=== PATIENT | female | born 1985 | race Caucasian/White ===

== ENCOUNTER 2016-12-20 17:00 | Inpatient (IN) | payer OTHER ==
[~2016-12-20] VITALS: Ht 180.3 cm; Wt 46.3 kg
--- NOTE | ~2016-12-20 | PN ---
Unit #: [id number] #: [id number] Patient: ALEXY MALDONADO [id number] [facility] [address] [place] [address] [id number] I MR#: [id number] NAME: ALEXY MALDONADO ROOM: P210 Age: 31 Sex: F Admission Date: 12/20/2016 : 1985 Attending Physician: Dexter Van M.D. Admitting Physician: Dexter Van M.D. Primary Care Physician: Generic Doctor Not In System [facility] PROGRESS NOTES DATE 12/23/2016 DISCUSSION The patient continues to express hope that she will be accepted at the [facility] Works off a program. I have told her to expect a.m. discharge. Dictated by... Dexter Van M.D. CB/bzg TD: 12/23/2016 14:12 JOB #: [id number] [facility] PROGRESS NOTES Page 1 of 1 X Dexter Van MD X PROGRESS NOTE
--- NOTE | ~2016-12-20 | PN ---
Unit #: [id number] #: [id number] Patient: ALEXY MALDONADO [id number] [facility] [address] [place] [address] [id number] I MR#: [id number] NAME: ALEXY MALDONADO ROOM: P210 Age: 31 Sex: F Admission Date: 12/20/2016 : 1985 Attending Physician: Dexter Van M.D. Admitting Physician: Dexter Van M.D. Primary Care Physician: Generic Doctor Not In System [facility] PROGRESS NOTES DATE 12/22/2016 DISCUSSION The patient is in brighter spirits today and exhibits little in the way of signs of symptoms of withdrawal. She reports that she is [facility] her discharge from the hospital and has been working towards this with the help of a friend. Dictated by... Dexter Van M.D. CB/magali TD: 12/23/2016 05:10 JOB #: [id number] [facility] PROGRESS NOTES Page 1 of 1 X Dexter Van MD PROGRESS NOTE
--- NOTE | ~2016-12-20 | HP ---
Unit #: [id number] #: [id number] Patient: DAVINA MALDONADO [id number] [place] [address] [id number] I MR#: [id number] NAME: DAVINA MALDONADO ROOM: P210 Age: 31 Sex: F Admission Date: 12/20/2016 : 1985 Attending Physician: Dexter Van M.D. Admitting Physician: Dexter Van M.D. Primary Care Physician: Generic Doctor Not In System HISTORY AND PHYSICAL HISTORY OF PRESENT ILLNESS Davina is a 31-year-old female admitted on 12/20/[address] [place] [address] for detox from Suboxone and recent methamphetamine use. PAST MEDICAL HISTORY None. PAST SURGICAL HISTORY None. SOCIAL HISTORY Smokes one pack of cigarettes daily. No alcohol use. Does report use of Suboxone and methamphetamine amphetamine. She is currently single, living with her boyfriend and his mother and grandmother. FAMILY HISTORY Noncontributory. REVIEW OF SYSTEMS CONSTITUTIONAL: No fever or chills. HEENT: Denies any sore throat, ear pain or runny nose. CARDIOVASCULAR: Denies chest pain, irregular heart rhythm or palpitations. CHEST: Denies shortness of breath or cough. No hemoptysis. GASTROINTESTINAL: Denies nausea, vomiting, diarrhea or chronic constipation. ENDOCRINE: Denies history of increased thirst or urination. No recent significant weight loss or gain. GENITOURINARY: Denies dysuria, frequency, or hematuria. SKIN: Denies any rashes. HEMATOLOGIC: Denies history of increased bleeding or bruising. MUSCULOSKELETAL: Denies any hot, swollen joints. No generalized muscle pain. NEUROLOGIC: Denies problems with vision or speech. No frequent, severe headaches. No numbness, tingling or weakness in any extremities. Denies loss of bladder or bowel control. CURRENT MEDICATIONS None. Unit #: [id number] #: [id number] Patient: DAVINA MALDONADO ALLERGIES None. PHYSICAL EXAMINATION GENERAL: Alert, oriented, in no acute distress. VITAL SIGNS: Blood pressure 115/82, heart rate 90, temperature 97.6. HEIGHT: 5 foot 1 inches. WEIGHT: 102pounds. SKIN: Warm and dry without rash or lesion. HEENT: Normocephalic. TMs not viewed. Oral and nasal passages clear. Conjunctivae clear. PERRLA. EOMs intact. NECK: Supple without lymphadenopathy or thyromegaly. HEART: Regular rate and rhythm without murmur. LUNGS: Clear. ABDOMEN: Soft, nontender, without masses or hepatosplenomegaly. : Not done. EXTREMITIES: No evidence of cyanosis, clubbing or edema. Moves all without focal deficit. NEUROLOGICAL: Grossly within normal limits. Cranial Nerves: II: Visual ybarra are intact. III, IV AND : Extraocular movements are intact. Pupils are equal, round and reactive to light. V: Facial sensation is grossly normal. VII: Facial movements and expression are normal. VIII: Auditory acuity grossly intact. IX, X: Uvula is midline. Phonation is normal. XI: Patient shrugs shoulders and turns head normally. XII: Tongue protrudes in the midline. Sensory and Motor Function: Sensory and motor sensation is grossly normal. Motor: moves all extremities well. Coordination: Gait is normal. Deep Tendon Reflexes: Intact. IMPRESSION Psychiatric admission. RECOMMENDATIONS Psychiatric, per psychiatrist. MEDICAL: I see no contraindications to participating in facility's activities. MEDICAL PROGNOSIS Good. MEDICAL CONDITION Stable. Dictated by... Taran Granado/magali TD: 12/22/2016 01:38 JOB #: [id number] Unit #: [id number] #: [id number] Patient: DAVINA MALDONADO HISTORY AND PHYSICAL Page 1 of 1 X YAMIL CROWELL APRN X HISTORY AND PHYSICAL
--- NOTE | ~2016-12-20 | PA ---
Unit #: [id number] #: [id number] Patient: ALEXY MALDONADO [id number] [place] [address] [id number] I MR#: [id number] NAME: ALEXY MALDONADO ROOM: [facility] Age: 31 Sex: F Admission Date: 12/20/2016 : 1985 Date of Assessment: 12/21/2016 Attending Physician: Dexter Van M.D. Admitting Physician: Dexter Van M.D. Primary Care Physician: Generic Doctor Not In System PSYCHIATRIC ASSESSMENT IDENTIFYING INFORMATION The patient is a 31-year-old white female admitted to the [address] [place] [address] for opioid detox. INFORMANT(S) Chart. Patient cannot be aroused for interview. CHIEF COMPLAINT None give. HISTORY OF PRESENT ILLNESS The patient is a 31-year-old white female who was admitted for opioid detox. The patient reports that she has been using Suboxone for the past 7 months which has been prescribed. She states that she has not used in the four days and wishes to stop using. She also reports use of methamphetamine but states she last used two days prior to admission. She denies suicidal or homicidal ideation. she denies prior psychiatric or chemical dependence treatment. PAST PSYCHIATRIC HISTORY As above. PAST MEDICAL HISTORY Noncontributory. MEDICATIONS None. ALLERGIES None. FAMILY HISTORY Noncontributory SOCIAL HISTORY The patient's substance history is described previously. She is presently unemployed and lives with her boyfriend. She has two children whom she has custody. MENTAL STATUS EXAMINATION At this time reveals the patient to be a soundly sleeping white female who Unit #: [id number] #: [id number] Patient: ALEXY MALDONADO cannot be aroused for further interview. ASSETS AND LIABILITIES ASSETS: To be assessed. LIABILITIES: Lack of resources. ADMITTING DIAGNOSES 1. Opioid use disorder. 2. Methamphetamine use disorder PSYCHIATRIC PLAN/TREATMENT GOALS The patient will remain hospitalized for safety and stabilization. A routine detoxification for opioids has been initiated. Patient looks to be a good candidate for participation in the intensive outpatient program once discharge. ESTIMATED LENGTH OF STAY Three to five days. Dictated by... Dexter Van M.D. RATNA/magali TD: 12/21/2016 23:09 JOB #: [id number] PSYCHIATRIC ASSESSMENT Page 1 of 1 X Dexter Van MD PSYCHIATRIC ASSESSMENT
--- NOTE | ~2016-12-20 | DS ---
Unit #: [id number] #: [id number] Patient: ALEXY MALDONADO [id number] [facility] [address] [address] [id number] I MR#: [id number] NAME: ALEXY MALDONADO ROOM: [facility] Age: 31 Sex: F Admission Date: 12/20/2016 : 1985 Discharge Date: 12/24/2016 Attending Physician: Dexter Van M.D. Primary Care Physician: Generic Doctor Not In System DISCHARGE SUMMARY REASON FOR ADMISSION The patient is a 31-year-old white male, admitted with a history of opioid and methamphetamine abuse. HOSPITAL COURSE The patient was admitted to the [address] [place] [address] unit and placed on routine detoxification protocol for opioids. His stay in the hospital was an uneventful one. Actually his detox went smoothly. By 12/24/2016, arrangements have been made for the patient to go [facility] and discharge was ordered. FINAL DIAGNOSES Opioid use disorder; methamphetamine use disorder. DISPOSITION ON DISCHARGE The patient is discharged on no psychotropic or other medications. FOLLOWUP Followup will take place through the auspices of community mental health resources. PROGNOSIS The patient's prognosis considered fair. Dictated by... Dexter Van M.D. CB/leny TD: 12/24/2016 16:07 JOB #: [id number] DISCHARGE SUMMARY Page 1 of 1 X Dexter Van MD X DISCHARGE SUMMARY
[2016-12-21 12:40] LABS: BASOPHIL% 0.4 % (0-2.5); EOSINOPHIL# 0.1 X10e3 (0-0.7); EOSINOPHIL% 1.8 % (0.0-7.0); HEMATOCRIT 39.4 % (35.0-45.0); HEMOGLOBIN 12.9 gm/dL (12.0-16.0); LYMPHOCYTE# 1.7 X10e3 (1.0-3.5); LYMPHOCYTE% 25.1 % (17.0-45.0); MEAN CELL VOLUME 87.9 FL (83-96); MEAN CORPUSCULAR HEMOGLOBIN 28.9 PG (28-34); MEAN CORPUSCULAR HGB CONC 32.8 g/dL (30-36); MEAN PLATELET VOLUME 8.5 FL (6.5-11.5); MONOCYTE# 0.5 X10e3 (0-1.0); MONOCYTE% 6.8 % (3.0-12.0); NEUTROPHIL# 4.4 X10e3 (1.5-7.1); NEUTROPHIL% 65.9 % (40-75); PLATELET COUNT 246 X10e3 (140-420); RED BLOOD COUNT 4.48 X10e (3.90-5.30); WHITE BLOOD COUNT 6.7 X10e3 (4.0-10.5)
[2016-12-21 12:46] LABS: DIFF IND NO
[2016-12-21 12:50] LABS: ALBUMIN SERUM 3.6 g/dL (3.5-5.0); BILIRUBIN,TOTAL 0.2 mg/dL (0.2-2.0); BUN/CREATININE RATIO 26.66; CALCIUM SERUM 8.6 mg/dL (8.4-10.2); CREATININE SERUM 0.6 mg/dL (0.6-1.4); GLOM FILT RATE Estimated 121.5 mL/min (>60); POTASSIUM 3.7 mmol/L (3.5-5.1)
[2016-12-21 13:45] LABS: URINE APPEARANCE CLEAR; URINE BILIRUBIN NEG (NEG); URINE BLOOD 3+ (NEG); URINE COLOR YELLOW; URINE GLUCOSE NEG (NEG); URINE KETONE NEG (NEG); URINE LEUKOCYTE ESTERASE NEG (NEG); URINE NITRATE NEG (NEG); URINE PROTEIN NEG (NEG); URINE SPECIFIC GRAVITY 1.023 (1.003-1.035); URINE UROBILINOGEN 0.2 MG/DL (NEG)
[2016-12-21 13:48] LABS: URBCS1 AUWI 0-2 /[HPF] (0-2); URINE BACTERIA AUWI 1+ (NEGATIVE); URINE SQUAMOUS EPITHELIAL CELL OCC /[HPF]
[2016-12-21 14:02] LABS: AMPHETAMINE POS (NEG); BARBITURATES POS (NEG); BENZODIAZEPINES NEG (NEG); COCAINE NEG (NEG); MARIJUANA POS (NEG); OPIATES NEG (NEG); TRICYCLIC ANTIDEPRESSANTS NEG (NEG); U METHADONE NEG (NEG)
== END 2016-12-24 16:07 | disposition home or self-care (01) | DRG 897 ==
LOC: P2S 19:37
PROVIDERS: Specialist
PROC: HZ2ZZZZ Detoxification Services for Substance Abuse Treatment (ICD-10-PCS; principal; 2016-12-20)
DX: F11.10 Opioid abuse, uncomplicated (principal); F15.10 Other stimulant abuse, uncomplicated; F17.210 Nicotine dependence, cigarettes, uncomplicated
CPT/HCPCS: 80053; 80307; 81003; 84703; 85025; 86592; J1040